=== PATIENT | female | born 1980 | race Caucasian/White ===

== ENCOUNTER → 2019-06-27 18:53 | Outpatient (CLI) | payer OTHER, SELFPAY ==
--- NOTE | 2019-06-27 | DI.MRI.S_ITS ---
PROCEDURE: MR CERVICAL SPINE WO CON INDICATIONS: CERVICALGIA TECHNIQUE: Noncontrast sagittal T1 spin echo and T2 fast spin echo, sagittal STIR, foraminal oblique sagittal T2 fast spin echo, and axial gradient echo or T2 fast spin echo through the cervical spine. COMPARISON: [facility], CR, XR CERVICAL SPINE WITH OBLIQUES, 06/21/2019, 10:04. FINDINGS: Image quality: Excellent. Alignment and Curvature: There is loss of normal cervical lordosis. There is mild grade 1 retrolisthesis of C3 on C4 and C4 on C5. Bone Marrow: Marrow demonstrates normal overall signal. Spinal Cord: Visualized spinal cord has normal size and signal. No cerebellar tonsillar herniation. Paraspinous Soft Tissues: No paravertebral masses. Prevertebral soft tissues are normal in thickness. C2-C3: Normal appearance. C3-C4: Congenital canal stenosis. Mild disc height loss and desiccation. Mild diffuse disc bulge. Left-sided uncovertebral hypertrophy. Mild canal stenosis. Mild left femoral stenosis. No right foraminal stenosis. C4-C5: Congenital canal stenosis. Congenital canal stenosis. Mild disc height loss and desiccation. Mild diffuse disc bulge. Mild facet and uncovertebral hypertrophy bilaterally. Moderate canal stenosis. Moderate left and mild right foraminal stenosis. C5-C6: Mild disc height loss and desiccation. Mild diffuse disc bulge with small superimposed central protrusion. Mild facet and uncovertebral hypertrophy bilaterally. Moderate canal stenosis . Mild bilateral foraminal stenosis. C6-C7: Mild disc height loss and desiccation. Mild diffuse disc bulge. Mild canal stenosis. No foraminal stenosis. C7-T1: Normal appearance. IMPRESSION: 1. Diffuse congenital canal stenosis, with superimposed disc and facet disease, as well as uncovertebral hypertrophy. 2. Multilevel canal stenoses, worst at C4-C5 and C5-C6, where there are moderate canal stenoses present. 3. Multilevel foraminal stenoses, worst at C4-C5 on the left, where there is moderate foraminal stenosis present. Dictated by: Jan Cobb M.D. on 06/28/2019 at 9:11 Approved by: Jan Cobb M.D. on 06/28/2019 at 9:46
== END ==
PROVIDERS: Visit Provider Physical Medicine & Rehabilitation
DX: M50.21 Other cervical disc displacement, high cervical region (principal); M48.02 Spinal stenosis, cervical region
CPT/HCPCS: 72141

== ENCOUNTER → 2021-11-19 08:56 | Outpatient (CLI) | payer OTHER, SELFPAY ==
--- NOTE | 2021-11-19 | DI.US.S_ITS ---
ULTRASOUND OF RIGHT BREAST: 11/19/2021 CLINICAL: Patient returns today to evaluate a focal asymmetry in the right breast. Comparison is made to exams dated: 10/07/2021 mammogram and 06/26/2020 mammogram - [facility]. Doppler ultrasound of the right breast was performed. Smith scale images of the real-time examination were reviewed. There is a benign 1.1 cm x 0.5 cm x 1.1 cm oval cyst with a smooth internal wall in the right breast at 11 o'clock posterior depth 8 cm from the nipple. This oval cyst displays posterior acoustic enhancement. IMPRESSION: BENIGN There is no sonographic evidence of malignancy. The 1.1 cm x 0.5 cm x 1.1 cm oval cyst in the right breast is consistent with a complex cyst and is benign. A 1 year screening mammogram is recommended. This exam was interpreted at Station ID: [id number]. Electronically Signed By: Italo Low acr/:11/19/2021 11:32:46 letter sent: Normal Exam Ultrasound BI-RADS: 2 Benign
--- NOTE | 2021-11-19 08:58 | DI.MG.S_ITS ---
UNILATERAL RIGHT DIGITAL DIAGNOSTIC MAMMOGRAM 3D/2D WITH ADDITIONAL VIEWS: 11/19/2021 CLINICAL: Additional evaluation requested from prior study. Comparison is made to exams dated: 10/07/2021 mammogram, 06/26/2020 mammogram, and 11/29/2011 mammogram - [facility]. The tissue of right breast is heterogeneously dense. This may lower the sensitivity of mammography. Right retropectoral saline implant is stable and intact. There are multiple new round equal density asymmetries in the right breast middle depth superior region seen on the mediolateral oblique view only. Findings are seen only on tomography. These are seen in additional views. No other significant masses or calcifications are seen in the breast. IMPRESSION: INCOMPLETE: NEEDS ADDITIONAL IMAGING EVALUATION The multiple new round equal density asymmetries in the right breast are indeterminate. An ultrasound is recommended. US will be performed and dictated separately. This exam was interpreted at Station ID: [id number]. NOTE: For mammograms, a report in lay terms will be sent to the patient. Approximately 15% of breast malignancies will not be visualized mammographically. In the management of a palpable breast mass, a negative mammogram must not discourage biopsy of a clinically suspicious lesion. Electronically Signed By: Italo Low acr/:11/19/2021 10:18:26 ACR BI-RADS Category 0: Incomplete [id number]
== END ==
PROVIDERS: PCP Nurse Practitioner; Referring Provider Nurse Practitioner; Visit Provider Nurse Practitioner
DX: R92.8 Other abnormal and inconclusive findings on diagnostic imaging of breast (principal); N60.01 Solitary cyst of right breast
CPT/HCPCS: 76642; 77065; G0279